=== PATIENT | female | born 1940 | race American Indian/Alaskan Native ===

== ENCOUNTER 2016-07-24 21:57 | Inpatient (IN) | payer MEDICARE, OTHER ==
[2016-07-24 22:06] VITALS: BMI 32.8
[2016-07-24 22:55] LABS: ADD MANUAL DIFF? NO
[2016-07-24 23:05] LABS: BASO # 0.03 K/mm3 (0.0-2.0); BASO % 0.2 % (0.0-3.0); EOS # 0.1 (0.0-0.7); EOS % 0.8 % (1.5-5.0); GRAN # 8.97 (1.4-6.5); GRAN % 74.8 % (50.0-68.0); HEMATOCRIT 29.7 % (36.0-48.0); LYMPH # 2.4 (1.2-3.4); LYMPH % 20.2 % (22.0-35.0); MEAN CELL VOLUME 80.7 fL (80.0-105.0); MONO # 0.5 (0.1-0.6); PLATELET COUNT 197 10^3/uL (120.0-450.0); RED CELL DISTRIBUTION WIDTH 17.8 % (11.5-14.5)
--- NOTE | 2016-07-24 23:05 | ED PDOC ---
Arrival/HPI - General Chief Complaint: GI Problem Time Seen by Provider: 07/24/16 22:12 Historian: Patient - History of Present Illness Narrative History of Present Illness (Text): 07/24/16 22:51 Juana Green is a 75 year old female, whose past medical history includes hypertension, arthritis and anemia, presents to the emergency department complaining of rectal bleeding. States she noticed blood in the stool while passing bowel movement at 20:00 today. States she had a similar episode in 2011 , when she was evaluated [place] [facility] [place] Colonoscopy done at that time was unremarkable , and was advised to increase dietary fiber intake. Also informs of black tarry stool. Patient states she noticed blood in 3 bowel movements she had since 8 pm. Patient was found to be hypotensive when EMS arrived. No straining. Patient takes a baby Aspirin every other day. Denies fever, chills, headache, chest pain , shortness of breath, palpitations, nausea, vomiting, diarrhea, urinary symptoms, or any other complaints at this time. Time/Duration: 1-3 hours Symptom Onset: Sudden Symptom Course: Intermittent Severity Level: Mild Activities at Onset: Light Past Medical History - Provider Review Nursing Documentation Reviewed: Yes - Infectious Disease Hx of Infectious Diseases: None - Cardiac Hx Hypertension: Yes - Hematological/Oncological Hx Anemia: Yes (h/o venofer tx) - Musculoskeletal/Rheumatological Hx Arthritis: Yes - Gastrointestinal Other/Comment: H/O GI bleed - Psychiatric Hx Psychophysiologic Disorder: No Hx Substance Use: No - Anesthesia Hx Anesthesia: No Family/Social History - Physician Review Nursing Documentation Reviewed: Yes Family/Social History: No Known Family HX Smoking Status: Never Smoked Hx Alcohol Use: No Hx Substance Use: No Allergies/Home Meds Allergies/Adverse Reactions: Allergies No Known Allergies Allergy (Verified 08/04/14 13:07) Home Medications: Home Meds Medication Instructions Recorded Confirmed Ergocalciferol [Drisdol 50,000 1 cap PO Q7D 07/24/16 07/24/16 Intl Units Cap] Folic Acid [Folic Acid] 1 tab PO DAILY 07/24/16 07/24/16 Pregabalin [Lyrica] 1 cap PO HS 07/24/16 07/24/16 Rosuvastatin Calcium [Crestor] 1 tab PO DAILY 07/24/16 07/24/16 Valsartan/Hydrochlorothiazide 1 tab PO DAILY 07/24/16 07/24/16 [Diovan Hct 160-12.5 mg Tab] Review of Systems - Physician Review All systems were reviewed & negative as marked: Yes - Review of Systems Constitutional: Normal. absent: Fatigue, Fevers Respiratory: Normal. absent: SOB, Cough, Sputum Cardiovascular: Normal. absent: Chest Pain, Palpitations Gastrointestinal: Other (rectal bleeding). absent: Abdominal Pain, Constipation , Diarrhea, Nausea, Vomiting Musculoskeletal: Normal. absent: Arthralgias, Back Pain Neurological: Other (mild lightheadedness ). absent: Headache Psychiatric: Normal Physical Exam - Physical Exam Narrative Physical Exam (Text): 07/24/16 23:07 Constitutional: No acute distress. Head: Normocephalic. Atraumatic. Eyes: PERRL. ENT: Moist mucous membranes. Neck: Supple. Cardiovascular: Regular rate. Chest: No tenderness. Respiratory: Clear to auscultation bilaterally. GI: Soft. Nontender. Nondistended. Rectal: 1 external hemorrhoid non-thrombosed. Bright red blood. Back: No CVA tenderness. Musculoskeletal: No tenderness or swelling of extremities. Skin: No rash. Neurologic: Alert, no focal deficit. Vital Signs Reviewed: Yes Vital Signs Temp Pulse Resp BP Pulse Ox 07/25/16 04:40 98.1 F 98 H 16 127/53 L 07/25/16 03:55 98.1 F 88 16 129/57 L 07/25/16 03:40 97.7 F 83 16 118/56 L 07/25/16 02:11 98.2 F 81 18 113/52 L 100 07/24/16 22:31 140/80 07/24/16 22:19 112/62 07/24/16 22:09 98.0 F 88 18 91/63 L 100 Temperature: Afebrile Blood Pressure: Hypotensive Pulse: Regular Respiratory Rate: Normal Appearance: Positive for: Well-Appearing, Non-Toxic, Comfortable Pain Distress: None Mental Status: Positive for: Alert and Oriented X 3 Medical Decision Making ED Course and Treatment: 07/24/16 23:11 Impression: A 75 year old female who presents to the emergency department for evaluation of GI bleed. Plan: -- EKG -- GI Bleeding scan -- Labs -- Chest X-ray -- Urine culture -- Urinalysis -- Reassess and disposition Progress Notes: 07/25/16 03:28 EXAM: NM GI Bleeding Scan FINDINGS: Stomach and bowel: Unremarkable. No active GI bleeding. IMPRESSION: No active GI bleeding. Case discussed with who is aware and agrees with the plan to admit patient to telemetry for anemia. Accepts patient under his service with Dr. Rashid on GI consult and on surgical consult. Pt with a Hgb level of 9.2. Will transfuse 2 units in emergency department. Consent obtained. - Lab Interpretations Lab Results: 07/24/16 22:40 07/24/16 22:40 Lab Results 07/25/16 00:00: Blood Type Confirm AB POSITIVE 07/24/16 22:40: Blood Type AB POSITIVE, Antibody Screen Negative, Crossmatch See Detail, BBK History Checked No verified bt 07/24/16 22:40: Sodium 139, Potassium 3.9, Chloride 104, Carbon Dioxide 25, Anion Gap 14, BUN 37 H, Creatinine 1.2, Est GFR ( Amer) 53, Est GFR (Non- Af Amer) 44, Random Glucose 134 H, Calcium 8.8, Total Bilirubin 0.5, AST 19, ALT 30, Alkaline Phosphatase 88, Total Protein 7.7, Albumin 3.7, Globulin 4.0, Albumin/Globulin Ratio 0.9 L 07/24/16 22:40: PT 10.8, INR 1.00, APTT 20.8 L 07/24/16 22:40: WBC 12.0 H, RBC 3.68, Hgb 9.2 L, Hct 29.7 L, MCV 80.7, MCH 25.0 , MCHC 31.0, RDW 17.8 H, Plt Count 197, MPV 10.0, Gran % 74.8 H, Lymph % (Auto) 20.2 L, Falls % (Auto) 4.0, Eos % (Auto) 0.8 L, Baso % (Auto) 0.2, Gran # 8.97 H , Lymph # 2.4, Falls # 0.5, Eos # 0.1, Baso # 0.03 - RAD Interpretation Radiology Orders: 07/24/16 22:34 CHEST PORTABLE [RAD] Stat 07/24/16 23:31 GI BLEEDING SCAN W/ FLOW [NM] Stat - Scribe Statement The provider has reviewed the documentation as recorded by the Ashley Castañeda Provider Attestation: All medical record entries made by the Ashley were at my direction and personally dictated by me. I have reviewed the chart and agree that the record accurately reflects my personal performance of the history, physical exam, medical decision making, and the department course for this patient. I have also personally directed, reviewed, and agree with the discharge instructions and disposition. Disposition/Present on Arrival - Present on Arrival Any Indicators Present on Arrival: No History of DVT/PE: No History of Uncontrolled Diabetes: No Urinary Catheter: No History of Decub. Ulcer: No History Surgical Site Infection Following: None - Disposition Have Diagnosis and Disposition been Completed?: Yes Diagnosis: GI bleeding Disposition: HOSPITALIZED Disposition Time: 23:15 Patient Plan: Admission, Telemetry Condition: GUARDED
[2016-07-24 23:09] LABS: ALB/GLOB RATIO 0.9 (1.1-1.8); BILIRUBIN,TOTAL 0.5 mg/dL (0.2-1.3); CALCIUM 8.8 mg/dL (8.4-10.5); POTASSIUM 3.9 mmol/L (3.6-5.0); TOTAL PROTEIN 7.7 g/dL (5.8-8.3)
[2016-07-24 23:12] LABS: PARTIAL THROMBOPLASTIN TIME 20.8 Seconds (23.7-30.8)
[2016-07-25 06:04] LABS: URINE BILIRUBIN NEGATIVE (NEGATIVE); URINE BLOOD TRACE-LYSED (NEGATIVE); URINE GLUCOSE (UA) NEGATIVE (NEGATIVE); URINE KETONE NEGATIVE (NEGATIVE); URINE LEUKOCYTE ESTERASE TRACE Leu/uL (NEGATIVE); URINE PROTEIN NEGATIVE mg/dL (<30 mg/dL); URINE UROBILINOGEN 0.2 E.U./dL (<1 E.U./dL)
[2016-07-25 06:05] LABS: URINE APPEARANCE CLEAR (CLEAR); URINE COLOR LIGHT YELLOW (YELLOW)
[2016-07-25 06:29] LABS: URINE BACTERIA FEW (NEG)
[2016-07-25 07:37] LABS: ADD MANUAL DIFF? NO
[2016-07-25 07:39] LABS: BASO # 0.01 K/mm3 (0.0-2.0); BASO % 0.1 % (0.0-3.0); EOS # 0.1 (0.0-0.7); EOS % 0.7 % (1.5-5.0); GRAN # 6.16 (1.4-6.5); GRAN % 68.4 % (50.0-68.0); LYMPH # 2.4 (1.2-3.4); LYMPH % 26.4 % (22.0-35.0); MEAN CELL VOLUME 80.1 fL (80.0-105.0); MEAN CORPUSCULAR HEMOGLOBIN 25.3 pg (25.0-35.0); MEAN CORPUSCULAR HGB CONC 31.6 g/dl (31.0-37.0); MEAN PLATELET VOLUME 10.1 fl (7.0-11.0); MONO # 0.4 (0.1-0.6); MONO % 4.4 % (1.0-6.0); PLATELET COUNT 170 10^3/uL (120.0-450.0); RED CELL DISTRIBUTION WIDTH 17.1 % (11.5-14.5)
[2016-07-25 07:52] LABS: BLOOD UREA NITROGEN 30 mg/dL (7-21); CALCIUM 8.7 mg/dL (8.4-10.5); CARBON DIOXIDE 24 mmol/L (21-33); CHLORIDE 106 mmol/L (95-110); GFR AFRICAN-AMERICAN > 60; GLUCOSE,RANDOM 121 mg/dL (70-110); POTASSIUM 4.5 mmol/L (3.6-5.0); SODIUM 138 mmol/L (132-148)
--- NOTE | 2016-07-25 08:26 | HP ---
HISTORY OF PRESENT ILLNESS: The patient is a 75-year-old -Beninese female who presented to [facility] Emergency Room in the late night hours of 07/24/2016. The patient came to the Emergency Room at [facility]. The patient stated that she started having bright red blood per re ctum from about 8 p.m. onward which was unprovoked and spontaneous. The patient noticed 3 bowel mome nts which had bright red blood and some dark blood. According to the ER, she also complained of naus ea. REVIEW OF SYSTEMS: The patient's 13-system review was positive for above. The patient denies any ch ricardo in bowel habits, denies any melena, denies any abdominal pain. CODE STATUS: Full code. LIVING WILL AND ADVANCED DIRECTIVE: None. ALLERGIES: None. HEIGHT: 5 feet 4 inches. WEIGHT: 191. BMI: 33. HOME MEDICATIONS: 1. Crestor 5 mg daily. 2. Lyrica 50 mg at bedtime. 3. Drisdol 50,000 weekly. 4. Diovan HCT 160/12.5 daily. 5. Folic acid 1 mg daily. SOCIAL HISTORY: Negative for smoking, negative for alcohol, negative for substance abuse, negative f or drug abuse, negative for communicable transmissible diseases. MENSTRUAL HISTORY: Postmenopausal. FAMILY HISTORY: Positive for lung carcinoma, colon carcinoma. PAST MEDICAL AND SURGICAL HISTORY: Positive for hypertension, history of dyslipidemia, history of ce rvical and lumbar spine degenerative disk disease, history of degenerative joint disease of the knees , history of hypertension, history of obesity, history of anemia, history of hypovitaminosis D, histo ry of cervical and lumbar radiculopathy. Past medical history is significant for negative GI series. History of lumber spine stenosis, facet degeneration, facet arthropathy, L5-S1 degenerative diseas e. History of BIRAD I mammogram, history of cervical spine central stenosis and cervical spine degen erative disease. The patient's past medical history is also significant for dyslipidemia, history of diverticulosis, history of colonoscopy a few years ago by Dr. Christianson in [place], history of os teoarthritis; history of iron deficiency anemia, status post Venofer treatment. PHYSICAL EXAMINATION: GENERAL: The patient is seen room 267, bed 1. The patient is seen lying in the bed. VITAL SIGNS: T-max 98.2. Telemetry shows sinus rhythm, heart rate 83, 81, 98; blood pressure 113/52 , 118/56, 129/57, 127/53; respiration 18, O2 sat 100%. HEAD: Normocephalic, atraumatic. EENT: Shows pale conjunctivae, anicteric sclerae. No oropharyngeal lesion. No facial asymmetry. NECK: No neck rigidity. CHEST: Kyphosis. LUNGS: Shows no rales, crackles, or wheezing. CARDIOVASCULAR: S1, S2. Questionable soft systolic murmur left sternal border, right second interco stal space____. ABDOMEN: Protuberant, positive bowel sounds, slightly tympanic. Mild epigastric, periumbilical, rig ht, left lower quadrant and suprapubic tenderness. No rebound tenderness. No costovertebral angle t enderness. GENITALIA: Female. RECTAL: Deferred. EXTREMITIES: Shows no pitting edema, no calf tenderness, no Homans' sign. VASCULAR: Palpable pulses, ____. MUSCULOSKELETAL: Shows a body mass index of 32. CRANIAL NERVES AND NEUROLOGIC: Within normal limits. GAIT: Not tested. DIAGNOSTICS: WBC 12.0, hemoglobin and hematocrit are 9.2 and 29.7, platelets 197, granulocytes 75% s egs. PT and PTT are 10.8 and 21. Sodium 139, potassium 3.9, chloride 104, CO2 25, anion gap 14, BUN 37, creatinine 1.2, GFR 53, glucose 134. LFTs are normal. Urine pH 6.0, specific gravity 1.020, tr chapo hemolyzed, trace leukocyte, few bacteria. Blood type: AB positive. The patient was started tra nsfusion in the Emergency Room because of GI bleeding. The patient had GI bleeding scan. Preliminar y report as per the ER physician was negative for any active bleeding site noted. Chest x-ray was do ne. GI bleeding scan was done. GI bleeding scan: No active GI bleeding. EKG was done; the results are not available in the computer but reported to be normal by the ER physician. TREATMENT IN THE EMERGENCY ROOM: The patient was ordered transfusion of 2 units of PRBC. The patien t was admitted to telemetry. IMPRESSION: 1. Bright red blood per rectum and lower gastrointestinal bleeding. Etiology unclear at this time. 2. Hypovolemia and hypotension. 3. Normocytic anemia with leukocytosis, granulocytosis. 4. Prerenal kidney injury. 5. Hyperglycemia. 6. Microscopic hematuria, pyuria, bacteriuria. 7. History of hypertension, history of dyslipidemia, history of cervical radiculopathy, hypovitamino sis D, history of hypertension. 8. History of normocytic iron deficiency anemia, history of diverticulosis, history of obesity with elevated body mass index of 33. PLAN: 1. At this time, patient is to be admitted to telemetry. The patient has been ordered serial labs. Urine cultures ordered. 2. Consultation with gastroenterology and surgery. 3. The patient is kept n.p.o. 4. The patient is started on Protonix 40 IV q. 12. 5. NPO diet. 6. The patient will be started on IV fluids. 7. The patient at present is admitted to telemetry. 8. The patient's further management, evaluation, treatment plan, diagnostic intervention will be dep endent upon the patient's clinical condition, hemodynamic status, and as per patient's response to th erapeutic intervention, as per evaluation by gastroenterology and surgery. 9. The patient was explained about the details of her medical condition. Need for further diagnosti c and therapeutic intervention was discussed and explained to the patient at length and all questions and concerns answered to her satisfaction. Dictated and electronically signed; not read. Asif Funez MD cc: [id number] TT: 07/25/2016 08:24:51 oh
--- NOTE | 2016-07-25 08:54 | RAD ---
HISTORY: GI bleed COMPARISON: No prior. FINDINGS: LUNGS: No active pulmonary disease. PLEURA: No significant pleural effusion identified, no pneumothorax apparent. CARDIOVASCULAR: Normal. OSSEOUS STRUCTURES: No significant abnormalities. VISUALIZED UPPER ABDOMEN: Normal. OTHER FINDINGS: None. IMPRESSION: No active disease.
--- NOTE | 2016-07-25 09:05 | CP.PCM.CON ---
<Joanna Berg - Last Filed: 07/25/16 08:49> History of Present Illness - History of Present Illness History of Present Illness: General Surgery Dr. Canales HPI: 75 y/o F w/ [place]Hx of [place] [place] and HTN presented to the ED via ambulance after multiple episodes of BRBPR. Pt states bleeding began around 8pm last evening. First episode was bright red w/ dark blood and clots in the other 2 episodes. Pt reports feeling lightheaded, diaphoretic, and nauseated after last episode which is when pt's daughter called 911. Pt reports having a similar episode in 2011 which was [place] [facility] Pt had a colonoscopy at that time but is unsure of the results. Per ED documentation, pt was also having dark tarry stools prior to 8pm. Pt also admitted to taking ASA QOD. Pt denies syncope, SOB, CP, vomiting, abd pain. PMHx: HTN, HLD Meds: reviewed in chart NKDA PSHx: denies SHx: denies tobacco, EtOH, drugs FHx: noncontributory Review of Systems - Review of Systems All systems: reviewed and no additional remarkable complaints except (see HPI) Past Patient History - Infectious Disease Hx of Infectious Diseases: None - Past Social History Smoking Status: Never Smoked - CARDIAC Hx Cardiac Disorders: Yes Hx Hypercholesterolemia: Yes Hx Hypertension: Yes - PULMONARY Hx Respiratory Disorders: No - NEUROLOGICAL Hx Neurological Disorder: No - HEENT Hx HEENT Problems: No - RENAL Hx Chronic Kidney Disease: No - ENDOCRINE/METABOLIC Hx Endocrine Disorders: No - HEMATOLOGICAL/ONCOLOGICAL Hx Blood Disorders: Yes Hx Anemia: Yes (h/o venofer tx) - MUSCULOSKELETAL/RHEUMATOLOGICAL Hx Falls: No - GASTROINTESTINAL Hx Gastrointestinal Disorders: Yes Other/Comment: H/O GI bleed (with bld transfusion), diverticulosis - GENITOURINARY/GYNECOLOGICAL Hx Genitourinary Disorders: No - PSYCHIATRIC Hx Substance Use: No - SURGICAL HISTORY Hx Surgeries: No - ANESTHESIA Hx Anesthesia: No Meds Allergies/Adverse Reactions: Allergies Allergy/AdvReac Type Severity Reaction Status Date / Time No Known Allergies Allergy Verified 08/04/14 13:07 - Medications Medications: Current Medications Sodium Chloride (Sodium Chloride 0.9%) 1,000 mls @ 100 mls/hr IV .Q10H ALONA Stop: 07/27/16 09:29 Pantoprazole Sodium (Protonix Inj) 40 mg IVP Q12H ALONA Last Admin: 07/25/16 06:29 Dose: 40 mg Physical Exam - Constitutional Appears: Non-toxic, No Acute Distress - Head Exam Head Exam: NORMAL INSPECTION - Eye Exam Eye Exam: Normal appearance - ENT Exam ENT Exam: Mucous Membranes Moist - Respiratory Exam Respiratory Exam: NORMAL BREATHING PATTERN. absent: Accessory Muscle Use, Respiratory Distress - Cardiovascular Exam Cardiovascular Exam: REGULAR RHYTHM. absent: Bradycardia, Tachycardia - GI/Abdominal Exam GI & Abdominal Exam: Soft. absent: Distended, Guarding, Rebound, Rigid, Tenderness - Rectal Exam Rectal Exam: Bloody Stool (dark), Hemorrhoids - Extremities Exam Extremities exam: Positive for: normal inspection - Neurological Exam Neurological exam: Alert, Oriented x3 - Psychiatric Exam Psychiatric exam: Normal Affect, Normal Mood - Skin Skin Exam: Dry, Intact, Normal Color, Warm Results - Vital Signs Recent Vital Signs: Last Vital Signs Temp 97.9 F 07/25/16 08:40 Pulse 79 07/25/16 08:40 Resp 20 07/25/16 08:40 BP 110/54 L 07/25/16 08:40 Pulse Ox 99 07/25/16 07:40 - Labs Result Diagrams: 07/25/16 07:20 07/25/16 07:20 Labs: Laboratory Results - last 24 hr 07/25/16 07/25/16 07/25/16 05:02 07:20 07:20 WBC 9.0 D RBC 3.87 Hgb 9.8 L Hct 31.0 L MCV 80.1 MCH 25.3 MCHC 31.6 RDW 17.1 H Plt Count 170 MPV 10.1 Gran % 68.4 H Lymph % (Auto) 26.4 [place] % (Auto) 4.4 Eos % (Auto) 0.7 L Baso % (Auto) 0.1 Gran # 6.16 Lymph # 2.4 [place] # 0.4 Eos # 0.1 Baso # 0.01 Sodium 138 Potassium 4.5 Chloride 106 Carbon Dioxide 24 Anion Gap 13 BUN 30 H Creatinine 0.9 Est GFR ( Amer) > 60 Est GFR (Non-Af Amer) > 60 Random Glucose 121 H Calcium 8.7 Urine Color Light yellow Urine Appearance Clear Urine pH 6.0 Ur Specific [place] 1.020 Urine Protein Negative Urine Glucose (UA) Negative Urine Ketones Negative Urine Blood Trace-lysed H Urine Nitrate Negative Urine Bilirubin Negative Urine Urobilinogen 0.2 Ur Leukocyte Esterase Trace H Urine RBC 1 - 3 Urine WBC 1 - 3 Ur Epithelial Cells 3 - 4 Urine Bacteria Few Assessment & Plan - Assessment and Plan (Free Text) Assessment: 75 y/o F w/ GI bleeding - bleeding scan negative - monitor H/H - transfuse per primary - monitor vitals - f/u GI recs - cont medical management Pt seen and discussed w/ Dr. Parker Berg DO PGY1 <Jamaal Canales - Last Filed: 07/28/16 12:30> Results - Vital Signs Recent Vital Signs: Last Vital Signs Temp 97.8 F 07/27/16 06:00 Pulse 77 07/27/16 06:00 Resp 20 07/27/16 06:00 BP 132/64 07/27/16 06:00 Pulse Ox 99 07/27/16 06:00 - Labs Result Diagrams: 07/27/16 07:00 07/27/16 07:00 Assessment & Plan - Assessment and Plan (Free Text) Assessment: + HX Diverticular bleeding IMP Rec Diverticular Bleeding Constipation Shmuel Transfuse/Recheck H & H/GI for Colonoscopy This consultation done under my direct supervision Cassia Canales MD FACS
[2016-07-25] MEDS ORDERED: Propofol 10 mg/ml Inj (20 ML) ONE (12:54)
[2016-07-25] MEDS ORDERED: Midazolam 2 MG/2 ML VIAL ONE (12:55)
--- NOTE | 2016-07-25 12:56 | CON ---
DATE: 07/25/2016 Seen and examined at the bedside earlier today. REQUEST FOR CONSULT: GI bleed. This is a covering consult for Dr. Ishan Rashid. HISTORY OF PRESENT ILLNESS: This is a 75-year-old female with a past medical history of anemia, arth ritis and hypertension. Came to the Emergency Room with complaints of bleeding per rectum. The lorna ent said she had episodes like this back in 2011. The patient complained of abdominal cramping, had a large bloody bowel movement. She went a second time and after having another bloody bowel movement , she felt dizzy, weak and was sweating. On admission, she was hypotensive. She is status post 1 un it of packed RBCs. On admission, her hemoglobin was 9.2. She was sent for a bleeding scan which was reported to be negative. Currently, she is getting a second unit of blood and denies any episodes o f bleeding per rectum since admission. No complaints of shortness of breath, chest pain, nausea, vom iting. Denies any symptoms of acid reflux. No abdominal pain. No complaints of any unintentional w eight loss or any anorexia. When this episode occurred back in 2011, she did have an endoscopy and c olonoscopy, found to have diverticulosis. Does not recall any polyps and the endoscopy does not reca ll any acute findings. PAST MEDICAL HISTORY: As stated above, hypertension, hyperlipidemia, arthritis, anemia, diverticulos is, history of gastrointestinal bleed in the past, history of obesity. SURGICAL HISTORY: Endoscopy, colonoscopy was in 2011. Denies any cardiac or abdominal surgery. SOCIAL HISTORY: Denies smoking, ETOH, or substance abuse. FAMILY HISTORY: One of her brothers had esophagus cancer. Another brother also had cancer, but she is unsure if it was colon cancer. MEDICATIONS: Reviewed as per MAY. REVIEW OF SYSTEMS: Systems reviewed with positive findings, see HPI. VITAL SIGNS: Temperature is 97.9, blood pressure 110/54, pulse 72, respirations 20. LABORATORY DATA: WBC is 9.0, H and H 9.8, hematocrit 31.0, platelets of 170. PT is 10.8, INR is 1.0 0, PTT is 20.8. Sodium 138, K 4.5, BUN is 30, creatinine 0.9. Urine, leuko esterase, there is a tra ce of blood, negative for ketones and protein. She did have a chest x-ray on admission and that was negative for pulmonary disease, no pulmonary effusion or pneumothorax. PHYSICAL EXAMINATION: HEENT: Sclera is anicteric. NECK: Supple. CARDIAC: S1, S2. LUNGS: With decreased breath sounds but good air entry. No rales or wheeze. ABDOMEN: With bowel sounds, soft, not distended. No tenderness appreciated on palpation. No reboun d, guarding, or organomegaly. RECTAL: Positive for external hemorrhoids, no blood noted on glove. Did not palpate any mass in rec florina. EXTREMITIES: Positive pulses, no edema. NEUROLOGIC: Awake, alert, and oriented. ASSESSMENT: A 75-year-old with history of hypertension, arthritis, history of gastrointestinal bleed in the past, comes with complaints of bleeding per rectum. The patient is noted to have anemia, hem orrhoids. Rule out any diverticular bleed, angiodysplasia, malignancy. PLAN: Continue to trend H and H. Monitor for the gastrointestinal bleed. We will plan for an upper endoscopy this afternoon. Continue PPI. She is on Protonix q.12. Currently n.p.o. for endoscopy. Continue IV fluids for hydration. The patient was also seen by the surgical team. Thank you for this consult and for allowing us to participate in your patient's care. We will make marian zhou recommendations based upon patient's clinical course. The patient was seen and case discussed with Dr. Sheth. Shanice DAMON cc: [id number] TT: 07/25/2016 12:55:11 Confirmation # [id number] Dictation # [id number]
--- NOTE | 2016-07-25 12:57 | NM ---
PROCEDURE: Nuclear medicine gastrointestinal bleeding scan. HISTORY: rectal bleeding, h/o diverticulosis COMPARISON: None available. TECHNIQUE: 4 cc of patient blood was withdrawn and mixed with 35 mCi of technetium ultra tagged. Images of the abdomen and pelvis were obtained in the anterior and posterior projection at 1 min intervals over a period of 45 min. FINDINGS: No abnormal extravasation of tracer was observed throughout the exam to indicate active bleeding within or outside the gastrointestinal tract. Physiologic activity was seen in the heart, liver, spleen and blood vessels. The report concurs with the preliminary [facility] report IMPRESSION: No evidence of active gastrointestinal bleeding.
[2016-07-25] MEDS ORDERED: Lactated Ringer's 1,000 ML IV SCH (13:26)
--- NOTE | 2016-07-25 13:30 | CARD ---
APPROVED REPORT EKG Measurement Heart [id number] <Conclusion> Normal sinus rhythm LAD PRWP QS in V1, possible septal HI, age unknown
[2016-07-25] MEDS: Sodium Chloride 0.9% 1,000 ML IV SCH (19:42)
[2016-07-26] MEDS: Sodium Chloride 0.9% 1,000 ML IV SCH ×2 (03:30→05:53)
[2016-07-26 06:51] LABS: ADD MANUAL DIFF? NO
[2016-07-26 07:10] LABS: ALKALINE PHOSPHATASE 70 U/L (38-133); ALT/SGPT 27 U/L (7-56); AST/SGOT 21 U/L (15-39); BILIRUBIN,TOTAL 1.1 mg/dL (0.2-1.3); BLOOD UREA NITROGEN 20 mg/dL (7-21); CALCIUM 8.7 mg/dL (8.4-10.5); CARBON DIOXIDE 22 mmol/L (21-33); CHLORIDE 109 mmol/L (95-110); GFR AFRICAN-AMERICAN > 60; GLUCOSE,RANDOM 80 mg/dL (70-110); SODIUM 139 mmol/L (132-148); TOTAL PROTEIN 6.6 g/dL (5.8-8.3)
[2016-07-26 07:11] LABS: BASO # 0.02 K/mm3 (0.0-2.0); BASO % 0.3 % (0.0-3.0); EOS # 0.2 (0.0-0.7); EOS % 2.2 % (1.5-5.0); GRAN # 4.46 (1.4-6.5); GRAN % 62.3 % (50.0-68.0); HEMATOCRIT 30.2 % (36.0-48.0); LYMPH # 2.1 (1.2-3.4); LYMPH % 29.8 % (22.0-35.0); MEAN CELL VOLUME 79.9 fL (80.0-105.0); MEAN CORPUSCULAR HEMOGLOBIN 25.7 pg (25.0-35.0); MEAN CORPUSCULAR HGB CONC 32.1 g/dl (31.0-37.0); MEAN PLATELET VOLUME 10.1 fl (7.0-11.0); MONO # 0.4 (0.1-0.6); MONO % 5.4 % (1.0-6.0); PLATELET COUNT 140 10^3/uL (120.0-450.0); RED CELL DISTRIBUTION WIDTH 17.2 % (11.5-14.5); WHITE BLOOD COUNT 7.2 10^3/ul (4.5-11.0)
--- NOTE | 2016-07-26 08:42 | CON ---
DATE: 07/25/2016 This patient was seen and evaluated earlier. Discussed with Dr. Funez. This 75 -year-old patient admitted with bleeding per rectum. This is an addendum to the GI consultation report dictated by Shanice Smith NP. The patient's hemoglobin remains stable. The bleeding scan and imaging studies reviewed. The patient did receive a unit of transfusion. PHYSICAL EXAMINATION: ABDOMEN: Soft. There is no tenderness. IMPRESSION: This 75-year-old patient admitted with bleeding per rectum, abdominal cramping. Was transfused a unit of blood. Hemaglobin stable. Would benefit from upper gastrointestinal endoscopy and a colonoscopy to further evaluate bleeding, should be considered. Endoscopy report, EGD revealed mild esophagitis, gastritis and duodenal biopsies were also taken to rule out celiac in view of this anemia. There is no upper GI source of active bleeding noticed. PLAN: 1. Would recommend patient starting on a clear liquid diet. 2. Followup of the hemoglobin and hematocrit. 3. Would recommend CT of the abdomen and pelvis with p.o. contrast to further evaluate. Continue to closely follow up the hemoglobin and hematocrit. If there is an active recurrence of the GI bleeding, we will consider emergent colonoscopy. Thank you very much for allowing us to participate in the care of the patient. Brandan Sheth MD cc: [id number] TT: 07/26/2016 08:41:56 Confirmation # [id number] Dictation # [id number] GARVEY
--- NOTE | 2016-07-26 08:43 | CP.PCM.PN ---
<Joanna Berg - Last Filed: 07/26/16 08:39> Subjective - Date & Time of Evaluation Date of Evaluation: 07/26/16 Time of Evaluation: 06:45 - Subjective Subjective: General Surgery Dr. Canales Pt S&E @bedside. colonoscopy performed yesterday. Pt tolerated procedure. NAEO. denies abd pain, BRBPR, N/V. tolerating CLD. Objective - Vital Signs/Intake and Output Vital Signs (last 24 hours): Temp Pulse Resp BP Pulse Ox 98.1 F 86 20 132/69 96 07/26/16 05:30 07/26/16 05:30 07/26/16 05:30 07/26/16 05:30 07/26/16 05:30 Intake and Output: 07/26/16 07/26/16 06:59 18:59 Intake Total 1040 Balance 1040 - Medications Medications: Current Medications Sodium Chloride (Sodium Chloride 0.9%) 1,000 mls @ 100 mls/hr IV .Q10H ALONA Stop: 07/27/16 09:29 Last Admin: 07/26/16 05:53 Dose: 100 mls/hr Pantoprazole Sodium (Protonix Inj) 40 mg IVP Q12H ALONA Last Admin: 07/26/16 05:54 Dose: 40 mg - Labs Labs: 07/26/16 06:49 07/26/16 06:49 PT 10.8 Seconds (9.9-11.8) 07/24/16 22:40 INR 1.00 (0.93-1.08) 07/24/16 22:40 APTT 20.8 Seconds (23.7-30.8) L 07/24/16 22:40 - Constitutional Appears: Non-toxic, No Acute Distress - Head Exam Head Exam: NORMAL INSPECTION - Eye Exam Eye Exam: Normal appearance - ENT Exam ENT Exam: Mucous Membranes Moist - Respiratory Exam Respiratory Exam: NORMAL BREATHING PATTERN. absent: Accessory Muscle Use, Respiratory Distress - Cardiovascular Exam Cardiovascular Exam: absent: Bradycardia, Tachycardia - GI/Abdominal Exam GI & Abdominal Exam: Soft. absent: Distended, Guarding, Tenderness, Rebound - Neurological Exam Neurological Exam: Alert, Awake, Oriented x3 - Psychiatric Exam Psychiatric exam: Normal Affect, Normal Mood - Skin Skin Exam: Dry, Intact, Normal Color, Warm Assessment and Plan - Assessment and Plan (Free Text) Assessment: 75 y/o F w/ GI bleeding - monitor H/H - f/u GI recs - f/u colonoscopy report - transfuse prn per primary - advance diet per GI Further recs per Dr. Parker Berg DO PGY1 <Jamaal Canales - Last Filed: 07/28/16 12:34> Objective - Vital Signs/Intake and Output Vital Signs (last 24 hours): Temp Pulse Resp BP Pulse Ox 97.8 F 77 20 132/64 99 07/27/16 06:00 07/27/16 06:00 07/27/16 06:00 07/27/16 06:00 07/27/16 06:00 - Labs Labs: 07/27/16 07:00 07/27/16 07:00 PT 10.8 Seconds (9.9-11.8) 07/24/16 22:40 INR 1.00 (0.93-1.08) 07/24/16 22:40 APTT 20.8 Seconds (23.7-30.8) L 07/24/16 22:40 Assessment and Plan - Assessment and Plan (Free Text) Assessment: Colonoscopy=Diverticulosis Shmuel: Liquid diet - progress prn R Parker ROSS FACS
[2016-07-26] MEDS ORDERED: Barium Sulfate Susp 2.1% w/v, 2.0% w/w 450 mL Bottle PO ONE (09:46)
--- NOTE | 2016-07-26 13:53 | CT ---
PROCEDURE: CT Abdomen and Pelvis with oral contrast. HISTORY: abdominal pain gi bleeding r/o colitis COMPARISON: None. TECHNIQUE: Contiguous axial images of the abdomen and pelvis. No IV contrast given. Oral contrast was given. Evaluation soft tissue structures about limited given lack of intravenous contrast. Radiation dose: Total exam DLP = 1025.63 mGy-cm. This CT exam was performed using one or more of the following dose reduction techniques: Automated exposure control, adjustment of the mA and/or kV according to patient size, and/or use of iterative reconstruction technique. FINDINGS: LOWER THORAX: Mild bibasilar atelectatic changes noted. Small hiatal hernia. LIVER: Sub centimeter hypodensity in the left hepatic lobe (image 31, series 2. This is suboptimally evaluated however likely is a cyst versus hemangioma. GALLBLADDER AND BILE DUCTS: Collapsed gallbladder with innumerable hyperdense calculi. No pericholecystic fluid or stranding. No CT evidence of acute cholecystitis. No intra or extrahepatic biliary ductal dilatation. PANCREAS: Unremarkable. No mass. No ductal dilatation. SPLEEN: Unremarkable. No splenomegaly. ADRENALS: Unremarkable. KIDNEYS AND URETERS: Unremarkable. No stone or hydronephrosis. BLADDER: Grossly unremarkable. REPRODUCTIVE: Please note that evaluation of gynecologic organs is not optimal on CT imaging. Multiple calcifications in the uterus presumed to be calcified fibroids. APPENDIX: Unremarkable. BOWEL: Diverticulosis without evidence of diverticulitis. No overt evidence of colitis. PERITONEUM: Unremarkable. No fluid collection. No free air. LYMPH NODES: No enlarged lymph nodes. VASCULATURE: Unremarkable. No aortic aneurysm. BONES: No fracture or destructive lesion. OTHER FINDINGS: Left posterior soft tissue calcifications. IMPRESSION: No overt evidence of colitis. Other findings as above.
[2016-07-26] MEDS ORDERED: cefTRIAXone 1 gm 1 GM/100 ML BAG IVPB SCH (14:15)
--- NOTE | 2016-07-26 19:34 | PN ---
DATE: 07/26/2016 LOCATION: The patient is seen in room 267, bed 1. SUBJECTIVE: The patient is lying in the bed. The patient is eating a liquid diet, which she is tolerating. The patient denies any bright red blood per rectum. Denies any bleeding. Denies any melena. Denies any abdominal pain. Denies any nausea, vomiting or diarrhea. REVIEW OF SYSTEMS: A 13-system review was done. Pertinent positive and negative dictated above. OBJECTIVE: VITAL SIGNS: As per the vital sign sheet, which was reviewed. Telemetry shows sinus rhythm, average systolic blood pressure in the low 100s-110s. O2 sat is in the mid to high 90s. HEENT: Head examination normocephalic, atraumatic. Shows pale conjunctivae, anicteric sclerae. No oropharyngeal lesion. NECK: No neck rigidity. CHEST: Kyphosis. LUNGS: Shows no rales, crackles, or wheezing. CARDIOVASCULAR: S1, S2. Regular rhythm. ABDOMEN: Less protuberant, positive bowel sounds, nontender. No guarding, no rigidity, no but rebound tenderness. No costovertebral angle tenderness. GENITALIA: Female. RECTAL: Deferred. Yesterday's rectal examination was positive, stool occult __ ___. EXTREMITIES: Shows no pitting edema, no calf tenderness, no Homans signs. The patient has ANN stockings on and SCDs n. MUSCULOSKELETAL: Shows an elevated body mass index. NEUROLOGIC: The patient is alert, awake, oriented x 3. Cranial nerves II-XII intact. GAIT: Was not tested. VASCULAR: Palpable pulses. DIAGNOSTICS: The patient received 2 units of PRBCs. WBC count is normal, hemoglobin and hematocrit is 9.6 and hematocrit 31, platelets are normal. CMP and LFTs are reviewed, which are within normal limits. The patient had an EGD, preliminary report was noted. The patient has gastritis , gastric erosion. The patient's colonoscopy was not done, but there is a report in the computer in the surgery section of the report, which stated that the patient had an EGD and colonoscopy, then there was a report noted in the nursing section, which show that patient had an EGD and colonoscopy and the scope was passed up to cecum and terminal ileum, which was reviewed with the patient today's nurse, Emi, and the Nursing Soils Technician . The patient stated that she did not have colonoscopy, she only had endoscopy. I have attempted to reach out to Dr. Sheth regarding this confusion and procedures, which were done on the patient yesterday. IMPRESSION AND PLAN: 1. Bright red blood per rectum. 2. Gastrointestinal bleeding. 3. Most likely lower gastrointestinal bleeding, probably secondary to diverticulosis. 4. Anemia secondary to rectal bleeding and acute blood loss anemia. 5. Status post packed red blood cell transfusion. 6. Hypovolemia and hypotension. 7. Status post packed red blood cell transfusion x 2. 8. Status post esophagogastroduodenoscopy. 9. Gastritis, gastric erosions. 1. Bright red blood per rectum and lower gastrointestinal bleeding. Etiology unclear at this time. 2. Hypovolemia and hypotension. 3. Normocytic anemia with leukocytosis, granulocytosis. 4. Prerenal kidney injury. 5. Hyperglycemia. 6. Microscopic hematuria, pyuria, bacteriuria. 7. History of hypertension, history of dyslipidemia, history of cervical radiculopathy, hypovitaminosis D, history of hypertension. 8. History of normocytic iron deficiency anemia, history of diverticulosis, history of obesity with elevated body mass index of 33. 10. Questionable colonoscopy as per nurses' notes and surgery operative notes. PLAN: At this time, the patient is to be continued on IV fluids. Serial labs are ordered. I have reached Dr. Sheth regarding confusion of the procedure because according to the nurses' notes and surgery operative note. The patient had EGD and colonoscopy, but the patient reports she only had EGD. The patient will be continued on IV Protonix, IV fluid. The patient's serial labs will be ordered, we are awaiting. We are awaiting further recommendations by gastroenterology. Dictated and electronically signed, not read. Asif Funez MD cc: [id number] TT: 07/26/2016 19:33:39 Confirmation # [id number] Dictation # [id number] filomena GARVEY
[2016-07-26] MEDS ORDERED: Cefepime 1gm in NS 100ml 1 GM/100 ML BAG IVPB SCH (22:00)
--- NOTE | 2016-07-26 23:54 | PN ---
DATE: 07/26/2016 SUBJECTIVE: This patient was seen and evaluated earlier and the patient's family was at bedside. PHYSICAL EXAMINATION: VITAL SIGNS: Temperature is 98, blood pressure 142/68, pulse 86, respirations 18. HEENT: Atraumatic, anicteric. NECK: Supple. HEART: S1, S2 heard. LUNGS: Bilateral air entry present. ABDOMEN: Soft. There is no mass palpable. No tenderness. EXTREMITIES: No edema, no cyanosis. NEUROLOGIC: Alert, oriented. Moves all the extremities. LABORATORY DATA: Hemoglobin 9.7, hematocrit 30.2, WBC 7.2, platelets 140. Chemistries are essential ly unremarkable. The patient did have a CT of the abdomen and pelvis done, which did not show any ac tive colitis. No mass or lesion noticed. alone noticed. IMPRESSION: This is a 75-year-old patient admitted with gastrointestinal bleeding. The patient did receive a blood transfusion, 2 units; hemoglobin has been stable. No further episodes of bleeding. The patient had only upper GI endoscopy; no colonoscopy was performed. However, by mistake, there wa s an error in the surgical , which was rightly pointed out by Dr. Funez and this will be correct ed. Post-procedure, I did discuss with Dr. Funez about the procedure findings. I did explain today to the patient's family, son and also the patient at length about the findings again. The patient di d have a history of gastrointestinal bleeding about close to 5 years ago; had endoscopy and colonosco py done before. Presently, the patient's hemoglobin has been stable and no further bleeding. The pa tient's diet has been advanced. The patient is keen to go home and the options were explained to the patient that there is a possibility of recurrent bleeding. The bleeding can occur at home, but sinc e it is stable, this can be performed as an outpatient. If the patient is agreeable to stay in the ospital, we will schedule the patient for a colonoscopy on Thursday. The patient was also advised to anai kurtz with Dr. Funez. Thank you very much for allowing us to participate in the care of the patient. Brandan Sheth MD cc: [id number] TT: 07/26/2016 23:53:54 Confirmation # [id number] Dictation # [id number] mn
[2016-07-27 01:02] VITALS: RESP 20
[2016-07-27 06:30] VITALS: BP 132/64; PULSE 77; TEMP 97.8; O2SAT 99
[2016-07-27 07:31] LABS: ADD MANUAL DIFF? NO
[2016-07-27 07:48] LABS: BASO # 0.02 K/mm3 (0.0-2.0); BASO % 0.2 % (0.0-3.0); EOS # 0.1 (0.0-0.7); EOS % 1.5 % (1.5-5.0); GRAN # 4.96 (1.4-6.5); GRAN % 61.9 % (50.0-68.0); HEMATOCRIT 29.1 % (36.0-48.0); LYMPH # 2.4 (1.2-3.4); LYMPH % 30.3 % (22.0-35.0); MEAN CELL VOLUME 79.7 fL (80.0-105.0); MEAN CORPUSCULAR HEMOGLOBIN 25.8 pg (25.0-35.0); MEAN CORPUSCULAR HGB CONC 32.3 g/dl (31.0-37.0); MEAN PLATELET VOLUME 10.2 fl (7.0-11.0); MONO # 0.5 (0.1-0.6); MONO % 6.1 % (1.0-6.0); PLATELET COUNT 139 10^3/uL (120.0-450.0)
[2016-07-27 07:59] LABS: ALB/GLOB RATIO 0.9 (1.1-1.8); ALKALINE PHOSPHATASE 69 U/L (38-133); ALT/SGPT 30 U/L (7-56); AST/SGOT 26 U/L (15-39); BILIRUBIN,DIRECT 0.4 mg/dL (0.0-0.4); BILIRUBIN,TOTAL 0.8 mg/dL (0.2-1.3); BLOOD UREA NITROGEN 16 mg/dL (7-21); CALCIUM 8.7 mg/dL (8.4-10.5); CARBON DIOXIDE 24 mmol/L (21-33); CHLORIDE 108 mmol/L (98-107); GFR AFRICAN-AMERICAN > 60; GLUCOSE,RANDOM 72 mg/dL (70-110); MAGNESIUM 1.8 mg/dL (1.7-2.2); POTASSIUM 3.7 mmol/L (3.6-5.0); SODIUM 139 mmol/L (132-148); TOTAL PROTEIN 6.5 g/dL (5.8-8.3)
--- NOTE | 2016-07-27 09:03 | PN ---
DATE: 07/27/2016 The patient is a patient of Dr. Asif Funez. I am covering for him today. The patient is seen this morning. She is sitting up in bed. She is not happy that she has to stay in the hospital to have the colonoscopy. The patient was admitted with GI bleeding and she had received 2 units of blood and hemoglobin is 9.1. The patient also has infection in the urine. She is getting antibiotic treatment for that. The patient has a past history of GI bleeding 5 years ago. She has had a colonoscopy. PHYSICAL EXAMINATION: VITAL SIGNS: This morning, patient's pulse is 75, blood pressure 130/64, respirations are 20. The patient's O2 sat is 99%. HEAD: Normocephalic. NECK: There is no lymphadenopathy. The thyroid is not enlarged. Carotid pulses are present. HEART: Normal sinus rhythm. S1 and S2 present. No murmurs. LUNGS: Trachea central. Breath sounds vesicular. No adventitious sounds are heard. ABDOMEN: Soft, no tenderness, no masses. CENTRAL NERVOUS SYSTEM: The patient has no focal neurological deficits. DIAGNOSES: Recurrent gastrointestinal bleeding, but spaced about 5 years between episodes of bleeding. The patient has had a colonoscopy and has not had a followup for 5 years. The patient also has urinary tract infection, for which the patient is getting Maxipime and rest of her medications consist of pantoprazole as proton pump inhibitor to decrease the gastric acid secretion. LABORATORY FINDINGS: The hemoglobin as mentioned 9.4. The patient's chemistry : The sugar is 72. The patient's chemical parameters are within normal limits. Potassium at 3.7. The patient's random sugar has been recorded at 134 and 121, but patient does not have any history of diabetes as far as I can say. The patient's overall prognosis is guarded at this time. The patient needs evaluation to establish a diagnosis. The patient will be seen in the morning. She is scheduled to have a colonoscopy. Dr. Sheth is the river driver and I have advised the patient to talk to Dr. Sheth regarding her procedure. The patient is sort of disturbed by the fact that she is not able to eat, however. Mitch Dickey MD cc: [id number] TT: 07/27/2016 09:02:06 Confirmation # [id number] Dictation # [id number] en MTDD
--- NOTE | 2016-07-27 09:21 | CP.PCM.PN ---
Subjective - Date & Time of Evaluation Date of Evaluation: 07/27/16 Time of Evaluation: 09:16 - Subjective Subjective: pt was admitted for gi bleed still waiting for colonoscope ,wants to sign AMA.PT states she will come back for the test. Objective - Vital Signs/Intake and Output Vital Signs (last 24 hours): Temp Pulse Resp BP Pulse Ox 97.8 F 77 20 132/64 99 07/27/16 06:00 07/27/16 06:00 07/27/16 06:00 07/27/16 06:00 07/27/16 06:00 Intake and Output: 07/27/16 07/27/16 06:59 18:59 Intake Total 2760 Balance 2760 - Medications Medications: Current Medications Sodium Chloride (Sodium Chloride 0.9%) 1,000 mls @ 100 mls/hr IV .Q10H ALONA Stop: 07/27/16 09:29 Last Admin: 07/26/16 05:53 Dose: 100 mls/hr Cefepime HCl (Maxipime 1gm) 1 gm in 100 mls @ 100 mls/hr IVPB Q12 ALONA PRN Reason: Protocol Last Admin: 07/26/16 21:19 Dose: 100 mls/hr Pantoprazole Sodium (Protonix Inj) 40 mg IVP Q12H ALONA Last Admin: 07/27/16 05:46 Dose: 40 mg Polyethylene Glycol (Miralax) 17 gm PO DAILY ALONA - Labs Labs: 07/27/16 07:00 07/27/16 07:00 PT 10.8 Seconds (9.9-11.8) 07/24/16 22:40 INR 1.00 (0.93-1.08) 07/24/16 22:40 APTT 20.8 Seconds (23.7-30.8) L 07/24/16 22:40 - Constitutional Appears: No Acute Distress - Head Exam Head Exam: NORMOCEPHALIC - Eye Exam Eye Exam: Normal appearance Pupil Exam: PERRL - ENT Exam ENT Exam: Mucous Membranes Moist - Neck Exam Neck Exam: Full ROM - Respiratory Exam Respiratory Exam: Clear to Ausculation Bilateral, NORMAL BREATHING PATTERN - Cardiovascular Exam Cardiovascular Exam: RRR, +S1, +S2 - GI/Abdominal Exam GI & Abdominal Exam: Soft - Rectal Exam Rectal Exam: Deferred - Extremities Exam Extremities Exam: Full ROM - Neurological Exam Neurological Exam: Alert, Awake, CN II-XII Intact, Oriented x3 - Psychiatric Exam Psychiatric exam: Normal Affect - Skin Skin Exam: Dry, Warm Assessment and Plan - Assessment and Plan (Free Text) Assessment: AMA. gi bleed . Plan: risk of recurrent gi bleed .low bp. syncope and explained to pt.
--- NOTE | 2016-07-27 09:57 | CP.PCM.PN ---
<KevinMadina - Last Filed: 07/27/16 09:54> Subjective - Date & Time of Evaluation Date of Evaluation: 07/27/16 Time of Evaluation: 08:00 - Subjective Subjective: Surgery: Dr. Canales Pt seen and examined. No acute events overnight. States she feels well and doesn 't have any complaints at this time. Denies any more blood per rectum. Tolerating diet and ambulating. Denies N/V, F/C. Objective - Vital Signs/Intake and Output Vital Signs (last 24 hours): Temp Pulse Resp BP Pulse Ox 97.8 F 77 20 132/64 99 07/27/16 06:00 07/27/16 06:00 07/27/16 06:00 07/27/16 06:00 07/27/16 06:00 Intake and Output: 07/27/16 07/27/16 06:59 18:59 Intake Total 2760 Balance 2760 - Medications Medications: Current Medications Cefepime HCl (Maxipime 1gm) 1 gm in 100 mls @ 100 mls/hr IVPB Q12 ALONA PRN Reason: Protocol Last Admin: 07/26/16 21:19 Dose: 100 mls/hr Pantoprazole Sodium (Protonix Inj) 40 mg IVP Q12H ALONA Last Admin: 07/27/16 05:46 Dose: 40 mg Polyethylene Glycol (Miralax) 17 gm PO DAILY ALONA - Labs Labs: 07/27/16 07:00 07/27/16 07:00 PT 10.8 Seconds (9.9-11.8) 07/24/16 22:40 INR 1.00 (0.93-1.08) 07/24/16 22:40 APTT 20.8 Seconds (23.7-30.8) L 07/24/16 22:40 - Constitutional Appears: Well, No Acute Distress - Eye Exam Eye Exam: Normal appearance - ENT Exam ENT Exam: Mucous Membranes Moist - Respiratory Exam Respiratory Exam: NORMAL BREATHING PATTERN - Cardiovascular Exam Cardiovascular Exam: RRR - GI/Abdominal Exam GI & Abdominal Exam: Soft. absent: Distended, Tenderness - Neurological Exam Neurological Exam: Alert, Awake, Oriented x3 - Skin Skin Exam: Dry, Warm Assessment and Plan - Assessment and Plan (Free Text) Assessment: 75F with GI bleed Plan: - H/H has remained stable - pt expresses desire to go home and states she will f/u as outpt for colonoscopy - no further surgical intervention at this time - d/w Dr. Parker Brown, PGY-2 Surgery <Jamaal Canales - Last Filed: 07/28/16 12:36> Objective - Vital Signs/Intake and Output Vital Signs (last 24 hours): Temp Pulse Resp BP Pulse Ox 97.8 F 77 20 132/64 99 07/27/16 06:00 07/27/16 06:00 07/27/16 06:00 07/27/16 06:00 07/27/16 06:00 - Labs Labs: 07/27/16 07:00 07/27/16 07:00 PT 10.8 Seconds (9.9-11.8) 07/24/16 22:40 INR 1.00 (0.93-1.08) 07/24/16 22:40 APTT 20.8 Seconds (23.7-30.8) L 07/24/16 22:40 Assessment and Plan - Assessment and Plan (Free Text) Assessment: Hgb 9.7/juan miguel liquids Pt requesting D/C OK Adding Miralax R Parker ROSS FACS
[2016-07-27] MEDS ORDERED: POLYETHYLENE GLYCOL 3350 17 GM/Dose PACKET PO SCH (10:00)
--- NOTE | 2016-08-13 14:54 | DS ---
The patient signed out against medical advice on 07/27/2016. The patient was explained all the risks and consequences by the house physician, Dr. Xi De Leon, but patient refused to stay further in the hospital. FINAL DIAGNOSES: 1. Lower gastrointestinal bleeding with bright red blood per rectum. 2. Acute blood loss anemia. 3. Most likely lower gastrointestinal bleeding secondary to diverticulosis. 4. Anemia secondary to rectal bleeding and acute blood loss anemia. 5. Status post packed red blood cell transfusion. 6. Hypovolemia. 7. Hypertension. 8. Status post packed red blood cell transfusion x 2. 9. Status post esophagogastroduodenoscopy. 10. Gastritis. 11. Gastric erosions. 12. History of hypertension. 13. Obesity with elevated body mass index of 36. 14. Leukocytosis with granulocytosis. 15. Prerenal kidney injury. 16. Microscopic hematuria, bacteriuria. 17. Enterococcus faecalis urinary tract infection. 18. Status post 2 units of packed red blood cells transfusion. 19. Bibasilar atelectasis. 20. Small hiatal hernia. 21. Questionable hepatic cyst versus hepatic hemangioma. 22. Calcified fibroid uterus. 23. Diverticulosis without diverticulitis. 24. Chronic gastritis. 25. Status post esophagogastroduodenoscopy. 26. Esophagitis ____ gastroesophageal junction. 27. Gastric antral erosions. 28. Erosive gastropathy. 29. Reflux esophagitis. 1. Bright red blood per rectum. 2. Gastrointestinal bleeding. 3. Most likely lower gastrointestinal bleeding, probably secondary to diverticulosis. 4. Anemia secondary to rectal bleeding and acute blood loss anemia. 5. Status post packed red blood cell transfusion. 6. Hypovolemia and hypotension. 7. Status post packed red blood cell transfusion x 2. 8. Status post esophagogastroduodenoscopy. 9. Gastritis, gastric erosions. 1. Bright red blood per rectum and lower gastrointestinal bleeding. Etiology unclear at this time. 2. Hypovolemia and hypotension. 3. Normocytic anemia with leukocytosis, granulocytosis. 4. Prerenal kidney injury. 5. Hyperglycemia. 6. Microscopic hematuria, pyuria, bacteriuria. 7. History of hypertension, history of dyslipidemia, history of cervical radiculopathy, hypovitaminosis D, history of hypertension. 8. History of normocytic iron deficiency anemia, history of diverticulosis, history of obesity with elevated body mass index of 33. 10. Questionable colonoscopy as per nurses' notes and surgery operative notes. The patient signed out against medical advice on 07/27/2016. Dictated and electronically signed; not read. Asif Funez MD cc: [id number] TT: 07/27/2016 22:54:02 roslyn GARVEY
== END 2016-07-27 10:25 | disposition home or self-care (01) | DRG 378 ==
LOC: ED 21:57 → ERH 07-25 03:25 → 2RNO 07-25 05:14 → UNDODISIN 07-25 17:28
PROVIDERS: ADMIT Internal Medicine; ATTEND Internal Medicine
PROC: 0DB68ZX Excision of Stomach, Via Natural or Artificial Opening Endoscopic, Diagnostic (ICD-10-PCS; 2016-07-25)
PROC: 30233N1 Transfusion of Nonautologous Red Blood Cells into Peripheral Vein, Percutaneous Approach (ICD-10-PCS; 2016-07-25)
PROC: 0DB98ZX Excision of Duodenum, Via Natural or Artificial Opening Endoscopic, Diagnostic (ICD-10-PCS; principal; 2016-07-25 13:00)
DX: K57.91 Diverticulosis of intestine, part unspecified, without perforation or abscess with bleeding (principal); N17.9 Acute kidney failure, unspecified; I95.9 Hypotension, unspecified; D62 Acute posthemorrhagic anemia; E86.1 Hypovolemia; R31.29 Other microscopic hematuria; N39.0 Urinary tract infection, site not specified; I10 Essential (primary) hypertension; K29.70 Gastritis, unspecified, without bleeding; K64.4 Residual hemorrhoidal skin tags; K21.0 Gastro-esophageal reflux disease with esophagitis; R73.9 Hyperglycemia, unspecified

== ENCOUNTER 2016-08-06 10:05 | Day surgery (SDC) | payer MEDICARE, OTHER ==
[2016-08-04 09:00] VITALS: BMI 34.0
[2016-08-06] MEDS ORDERED: Propofol 10 mg/ml Inj (20 ML) ONE (10:46)
[2016-08-06] MEDS ORDERED: Lactated Ringer's 1,000 ML IV SCH (11:12)
[2016-08-06 11:32] VITALS: RESP 16
[2016-08-06 12:26] VITALS: BP 145/78; PULSE 90; TEMP 97.7; O2SAT 98
== END 2016-08-06 12:34 | disposition home or self-care (01) ==
LOC: ENDO 10:05
PROVIDERS: ATTEND Specialist
DX: K63.5 Polyp of colon (principal); K62.5 Hemorrhage of anus and rectum; K57.30 Diverticulosis of large intestine without perforation or abscess without bleeding; K64.8 Other hemorrhoids; D64.9 Anemia, unspecified; I10 Essential (primary) hypertension

== ENCOUNTER 2016-09-01 18:06 | Emergency (ER) | payer MEDICARE, OTHER ==
[2016-09-01 18:42] VITALS: BMI 34.3
[2016-09-01 18:51] VITALS: RESP 16
--- NOTE | 2016-09-01 19:24 | ED PDOC ---
Arrival/HPI - General Chief Complaint: Lower Extremity Problem/Injury Time Seen by Provider: 09/01/16 18:43 Historian: Patient - History of Present Illness Narrative History of Present Illness (Text): 09/01/16 19:08 A 76 year old female, whose past medical history includes hypertension and arthritis, presents to the emergency department for a blood clot. Patient reports she had left foot swelling for the past 1 week so she went to her PMD, who told her to get an ultrasound. Patient was at ultrasound prior to arrival. She was refereed the the emergency department from ultrasound. Patient denies any shortness of breath, chest pain, dizziness, lightheadedness, or any other complaints at this time. PMD: Dr. Funez Time/Duration: 1 week Symptom Onset: Gradual Symptom Course: Worsening Quality: Other Activities at Onset: Rest Context: Home Past Medical History - Provider Review Nursing Documentation Reviewed: Yes - Infectious Disease Hx of Infectious Diseases: None - Reproductive Menopause: Yes - Cardiac Hx Pacemaker: No - Pulmonary Hx Respiratory Disorders: No - Neurological Hx Neurological Disorder: No - HEENT Hx HEENT Disorder: No - Renal Hx Renal Disorder: No - Endocrine/Metabolic Hx Endocrine Disorders: No - Hematological/Oncological Hx Blood Transfusions: Yes Hx Blood Transfusion Reaction: Yes - Musculoskeletal/Rheumatological Hx Musculoskeletal Disorders: Yes - Gastrointestinal Hx Gastrointestinal Disorders: Yes Other/Comment: H/O GI bleed (with bld transfusion), diverticulosis - Genitourinary/Gynecological Hx Genitourinary Disorders: No - Psychiatric Hx Emotional Abuse: No Hx Physical Abuse: No Hx Substance Use: No - Anesthesia Hx Anesthesia Reactions: No Hx Malignant Hyperthermia: No - Suicidal Assessment Feels Threatened In Home Enviroment: No Family/Social History - Physician Review Nursing Documentation Reviewed: Yes Family/Social History: Other (nc) Smoking Status: Never Smoked Hx Alcohol Use: No Hx Substance Use: No Allergies/Home Meds Allergies/Adverse Reactions: Allergies No Known Allergies Allergy (Verified 09/01/16 18:42) Home Medications: Home Meds Medication Instructions Recorded Confirmed Folic Acid [Folic Acid] 1 tab PO DAILY 07/24/16 09/01/16 Rosuvastatin Calcium [Crestor] 5 mg PO DAILY 07/24/16 09/01/16 Valsartan/Hydrochlorothiazide 1 tab PO DAILY 07/24/16 09/01/16 [Diovan Hct 160-12.5 mg Tab] Pregabalin [Lyrica] 50 mg PO HS 09/01/16 09/01/16 Tramadol HCl/Acetaminophen 1 tab PO TID 09/01/16 09/01/16 [Acetaminophen-Tramadol HCl 325 mg-37.5 mg] Valsartan/Hydrochlorothiazide 1 tab PO DAILY 09/01/16 09/01/16 [Valsartan and Hydrochlorothiazide 25 mg-160 M] Review of Systems - Physician Review All systems were reviewed & negative as marked: Yes - Review of Systems Constitutional: absent: Fevers Respiratory: absent: SOB Cardiovascular: absent: Chest Pain Musculoskeletal: Other (left foot swelling) Physical Exam Vital Signs Reviewed: Yes Vital Signs Temp Pulse Resp BP Pulse Ox 09/01/16 21:28 98.9 F 79 16 139/88 99 09/01/16 18:48 16 98 09/01/16 18:43 98.8 F 102 H 20 161/85 H 94 L Temperature: Afebrile Blood Pressure: Hypertensive Pulse: Tachycardic Respiratory Rate: Normal Appearance: Positive for: Well-Appearing, Non-Toxic, Comfortable Pain Distress: None Mental Status: Positive for: Alert and Oriented X 3 - Systems Exam Head: Present: Atraumatic, Normocephalic Pupils: Present: PERRL Extroacular Muscles: Present: EOMI Conjunctiva: Present: Normal Mouth: Present: Moist Mucous Membranes Neck: Present: Normal Range of Motion Respiratory/Chest: Present: Clear to Auscultation, Good Air Exchange. No: Respiratory Distress, Accessory Muscle Use Cardiovascular: Present: Regular Rate and Rhythm, Normal S1, S2. No: Murmurs Abdomen: Present: Normal Bowel Sounds. No: Tenderness, Distention, Peritoneal Signs Back: Present: Normal Inspection Upper Extremity: Present: Normal Inspection. No: Cyanosis, Edema Lower Extremity: Present: Normal Inspection, Edema (1 + pitting edema half way up the bergman on the left extremity), NORMAL PULSES, Normal ROM. No: CALF TENDERNESS, Cyanosis Neurological: Present: GCS=15, CN II-XII Intact, Speech Normal Skin: Present: Warm, Dry, Normal Color. No: Rashes Psychiatric: Present: Alert, Oriented x 3, Normal Insight, Normal Concentration Medical Decision Making ED Course and Treatment: 09/01/16 19:[address] Funez, who states to place the patient on lovenox and he will follow up with her in the office on 09/03/2016. I disc plan w pt who v/u and agrees w plan. - Lab Interpretations Lab Results: 09/01/16 20:20 09/01/16 20:20 Lab Results 09/01/16 20:20: Sodium 139, Potassium 4.2, Chloride 105, Carbon Dioxide 25, Anion Gap 13, BUN 32 H, Creatinine 1.2, Est GFR ( Amer) 53, Est GFR (Non- Af Amer) 44, Random Glucose 91, Calcium 9.5, Total Bilirubin 0.5, AST 26, ALT 26 , Alkaline Phosphatase 91, Total Protein 7.9, Albumin 3.9, Globulin 4.0, Albumin /Globulin Ratio 1.0 L 09/01/16 20:20: PT 10.6, INR 0.98, APTT 25.0 09/01/16 20:20: WBC 7.9, RBC 3.79, Hgb 9.4 L, Hct 30.6 L, MCV 80.7, MCH 24.8 L, MCHC 30.7 L, RDW 17.1 H, Plt Count 196, MPV 10.0, Gran % 65.8, Lymph % (Auto) 27.4, [place] % (Auto) 5.5, Eos % (Auto) 1.0 L, Baso % (Auto) 0.3, Gran # 5.17, Lymph # 2.2, [place] # 0.4, Eos # 0.1, Baso # 0.02 I have reviewed the lab results: Yes - Medication Orders Current Medication Orders: Discontinued Medications Enoxaparin Sodium (Lovenox) 90 mg SC STAT STA PRN Reason: Protocol Stop: 09/01/16 19:26 Last Admin: 09/01/16 20:23 Dose: 90 mg - Scribe Statement The provider has reviewed the documentation as recorded by the Ashley Martin Provider Scribe Attestation: All medical record entries made by the Scribe were at my direction and personally dictated by me. I have reviewed the chart and agree that the record accurately reflects my personal performance of the history, physical exam, medical decision making, and the department course for this patient. I have also personally directed, reviewed, and agree with the discharge instructions and disposition. Disposition/Present on Arrival - Present on Arrival Any Indicators Present on Arrival: No History of DVT/PE: No History of Uncontrolled Diabetes: No Urinary Catheter: No History of Decub. Ulcer: No History Surgical Site Infection Following: None - Disposition Have Diagnosis and Disposition been Completed?: Yes Diagnosis: DVT (deep venous thrombosis) Disposition: HOME/ ROUTINE Disposition Time: 19:27 Condition: STABLE Discharge Instructions (ExitCare): Deep Venous Thrombosis (ED) Additional Instructions: Please follow up with your doctor this Thursday. Take your lovenox tomorrow morning, tomorrow night, and again Thursday morning. Dr Funez can then instruct you on what to do next when you see him. Return to the ER for any worsening symptoms or for any other concerns. Prescriptions: Enoxaparin [Lovenox] 90 mg SQ BID #3 syr Referrals: Asif Funez MD [Primary Care Provider] - Follow up with primary
[2016-09-01] MEDS ORDERED: Enoxaparin 100 mg Syringe SC STA (19:25)
[2016-09-01 20:26] LABS: ADD MANUAL DIFF? NO
[2016-09-01 20:34] LABS: BASO # 0.02 K/mm3 (0.0-2.0); BASO % 0.3 % (0.0-3.0); EOS # 0.1 (0.0-0.7); GRAN # 5.17 (1.4-6.5); GRAN % 65.8 % (50.0-68.0); HEMATOCRIT 30.6 % (36.0-48.0); LYMPH # 2.2 (1.2-3.4); LYMPH % 27.4 % (22.0-35.0); MEAN CELL VOLUME 80.7 fL (80.0-105.0); MEAN CORPUSCULAR HEMOGLOBIN 24.8 pg (25.0-35.0); MEAN CORPUSCULAR HGB CONC 30.7 g/dl (31.0-37.0); MONO # 0.4 (0.1-0.6); MONO % 5.5 % (1.0-6.0); PLATELET COUNT 196 10^3/uL (120.0-450.0); RED CELL DISTRIBUTION WIDTH 17.1 % (11.5-14.5); WHITE BLOOD COUNT 7.9 10^3/ul (4.5-11.0)
[2016-09-01 20:44] LABS: INR 0.98 (0.93-1.08)
[2016-09-01 20:57] LABS: BILIRUBIN,TOTAL 0.5 mg/dL (0.2-1.3); CALCIUM 9.5 mg/dL (8.4-10.5); POTASSIUM 4.2 mmol/L (3.6-5.0); TOTAL PROTEIN 7.9 g/dL (5.8-8.3)
[2016-09-01 21:28] VITALS: BP 139/88; PULSE 79; TEMP 98.9
[2016-09-01 21:29] VITALS: O2SAT 99
== END 2016-09-01 21:29 | disposition home or self-care (01) ==
LOC: ED 18:06
DX: I82.492 Acute embolism and thrombosis of other specified deep vein of left lower extremity (principal); I10 Essential (primary) hypertension
CPT/HCPCS: 80053; 85025; 85610; 85730; 96372; 99283; J1650

== ENCOUNTER 2018-04-22 08:02 | Outpatient (CLI) | payer MEDICARE, BC | END 2018-04-22 08:03 | disposition home or self-care (01) | LOC: RAD 08:02 ==

== ENCOUNTER 2018-07-14 09:18 | Outpatient (CLI) | payer MEDICARE, BC | END 2018-07-14 09:19 | disposition home or self-care (01) | LOC: RAD 09:18 ==